=== PATIENT | male | born 1945 | race Hispanic/Latino ===

== ENCOUNTER 2022-01-30 10:26 | Outpatient (CLI) | payer OTHER | END 2022-01-30 10:27 | disposition home or self-care (01) | LOC: BICRAD 10:26 | PROVIDERS: ATTEND Family Medicine | DX: J45.50 Severe persistent asthma, uncomplicated (principal); J18.9 Pneumonia, unspecified organism | CPT/HCPCS: 71046 ==

== ENCOUNTER 2022-06-08 10:30 | Inpatient (IN) | payer MEDICAID, OTHER, SELFPAY ==
[2022-06-08] MEDS ORDERED: Aspirin Chewable 81 MG TAB ONE (10:49)
[2022-06-08] MEDS ORDERED: cefTRIAXone\\ROCEPHIN 2 GM VIAL ONE (10:53)
[2022-06-08] MEDS ORDERED: Ipratropium/Albuterol 3 ML NEB ONE (10:53)
[2022-06-08] MEDS ORDERED: Albuterol 2.5 MG/0.5 ML NEB ONE (10:53)
[2022-06-08 11:08] LABS: #Basophils 0.1 thou/uL (0.0-0.2); #Lymphocytes 1.5 thou/uL (1.20-3.40); #Monocytes 0.8 thou/uL (0.11-0.59); #Neutrophils 11.4 thou/uL (1.40-6.50); %Basophils 0.5 % (0.0-1.0); %Eosinophils 0.2 % (0.0-10.0); %Monocytes 5.6 % (0.0-10.0); %Neutrophils 82.7 % (42.0-75.0); Hemoglobin 17.8 g/dL (14.0-18.0); Mean Corpuscular HGB CONC 31.3 g/dL (32.0-36.0); Mean Corpuscular Hemoglobin 32.8 pg (27.0-31.0); Mean Platelet Volume 9.3 fL (7.4-10.4); Platelet Count 166 10x3/uL (130-400); Red Blood Cell (RBC) Count 5.42 mill/uL (4.70-6.10); White Blood Cell (WBC) Count 13.8 10x3/uL (4.8-10.8)
[2022-06-08] MEDS ORDERED: Azithromycin 500 MG VIAL ONE (11:39)
[2022-06-08 12:13] LABS: ALT (SGPT) 12 U/L (8-55); AST (SGOT) 20 U/L (5-34); Albumin 3.4 g/dL (3.4-4.8); Alkaline Phosphatase 90 U/L (40-110); Anion Gap 13 mmol/L (10-20); BUN (Urea Nitrogen) 26 mg/dL (8.4-25.7); Bilirubin, Total 0.5 mg/dL (0.2-1.2); Calc. Creatinine Clearance 0 mL/min (70-130); Calcium 9.2 mg/dL (7.8-10.44); Carbon Dioxide 27 mmol/L (23-31); Chloride 84 mmol/L (98-107); Estimated GFR 63; Globulin 4.2 g/dL (2.4-3.5); Glucose 117 mg/dL (83-110); Lipase 10 U/L (8-78); Potassium 5.7 mmol/L (3.5-5.1); Protein, Total 7.6 g/dL (5.8-8.1)
[2022-06-08 12:15] LABS: INR-International Normal Ratio 1.5; PTT 39.2 sec (22.9-36.1); Prothrombin Time 18.3 sec (12.0-14.7)
[2022-06-08 12:16] LABS: Sodium 118 mmol/L (136-145)
[2022-06-08 14:11] LABS: ALT (SGPT) 11 U/L (8-55); AST (SGOT) 24 U/L (5-34); Albumin 2.9 g/dL (3.4-4.8); Alkaline Phosphatase 87 U/L (40-110); Anion Gap 16 mmol/L (10-20); BUN (Urea Nitrogen) 25 mg/dL (8.4-25.7); Bilirubin, Total 0.4 mg/dL (0.2-1.2); Calc. Creatinine Clearance 0 mL/min (70-130); Calcium 9.2 mg/dL (7.8-10.44); Carbon Dioxide 24 mmol/L (23-31); Chloride 86 mmol/L (98-107); Estimated GFR 61; Globulin 4.3 g/dL (2.4-3.5); Glucose 114 mg/dL (83-110); Potassium 5.8 mmol/L (3.5-5.1); Protein, Total 7.2 g/dL (5.8-8.1); Sodium 120 mmol/L (136-145)
[2022-06-08] MEDS ORDERED: Acetaminophen 650 MG Suppository PR PRN (16:24)
[2022-06-08] MEDS ORDERED: Ondansetron PF 4 MG/2 ML Vial IVP PRN (16:24)
[2022-06-08] MEDS ORDERED: Sodium Chloride 0.9% 1,000 ML IV SCH (16:30)
[2022-06-08] MEDS ORDERED: Hydrocortisone Sod Succ/PF 500 mg/4 ml Vial SLOW IVP SCH (16:30)
[2022-06-08] MEDS ORDERED: Hydrocortisone Sod Succ/PF 100 mg/2 ml Vial IVP SCH (17:00)
[2022-06-08 18:07] LABS: Troponin I Less than 0.010 ng/mL (< 0.028)
[2022-06-08 18:27] LABS: Bacteria/HPF None Seen HPF (None Seen); Bilirubin Negative (Negative); Blood, Urine Negative (Negative); CAUTI Indications for Culture Alt mental st,lethar; Clarity Clear (Clear); Glucose, Urine (Dipstick) Normal (Negative); Ketone, Urine Negative (Negative); Leukocyte Negative Leu/uL (Negative); Nitrite Negative (Negative); Protein, Urine (Dipstick) Negative (Neg-Trace); RBC/HPF 0-3 HPF (0-3); Squamous Epithelial 0-3 HPF (0-3); Urobilinogen Normal mg/dL (Less than 2); WBC/HPF 0-3 HPF (0-3)
[2022-06-08 18:28] LABS: Urine Culture Reflex No No
[2022-06-08] MEDS: Cefepime 1 GM in Sodium Chloride 0.9% 100 ML IVPB SCH (18:36)
[2022-06-08 18:40] LABS: Creatinine, Urine 41.03 mg/dL (63-166); Sodium, Urine Less than 20 mmol/L (Not Available)
[2022-06-08] MEDS: Ipratropium/Albuterol 3 ML NEB NEB SCH ×2 (19:09→22:10)
[2022-06-08] MEDS: Famotidine/PF 20 mg/2ml Vial SLOW IVP SCH (20:31)
[2022-06-08 21:40] LABS: Anion Gap 13 mmol/L (10-20); BUN (Urea Nitrogen) 18 mg/dL (8.4-25.7); Calc. Creatinine Clearance 56 mL/min (70-130); Calcium 8.4 mg/dL (7.8-10.44); Carbon Dioxide 25 mmol/L (23-31); Chloride 93 mmol/L (98-107); Estimated GFR 94; Glucose 93 mg/dL (83-110); Potassium 5.6 mmol/L (3.5-5.1); Sodium 125 mmol/L (136-145)
[2022-06-08] MEDS: Sodium Chloride 0.9% 1,000 ML IV SCH (23:17)
[2022-06-09] MEDS: Hydrocortisone Sod Succ/PF 100 mg/2 ml Vial IVP SCH ×4 (01:29→17:14)
[2022-06-09] MEDS: Ipratropium/Albuterol 3 ML NEB NEB SCH ×6 (01:43→21:38)
[2022-06-09] MEDS: Cefepime 1 GM in Sodium Chloride 0.9% 100 ML IVPB SCH ×2 (05:39→17:14)
[2022-06-09 07:18] LABS: Anion Gap 13 mmol/L (10-20); BUN (Urea Nitrogen) 21 mg/dL (8.4-25.7); Calc. Creatinine Clearance 58 mL/min (70-130); Calcium 8.7 mg/dL (7.8-10.44); Carbon Dioxide 25 mmol/L (23-31); Chloride 96 mmol/L (98-107); Estimated GFR 95; Glucose 115 mg/dL (83-110); Sodium 128 mmol/L (136-145)
[2022-06-09 07:22] LABS: Potassium 6.1 mmol/L (3.5-5.1)
[2022-06-09 07:36] LABS: #Lymphocytes 0.3 thou/uL (1.20-3.40); #Monocytes 0.2 thou/uL (0.11-0.59); #Neutrophils 11.2 thou/uL (1.40-6.50); %Basophils 0.1 % (0.0-1.0); %Eosinophils 0.1 % (0.0-10.0); %Lymphocytes 2.2 % (21.0-51.0); %Monocytes 1.8 % (0.0-10.0); %Neutrophils 95.8 % (42.0-75.0); Hemoglobin 16.5 g/dL (14.0-18.0); Hypochromia SLIGHT = 6-15 cells (100X) (0-5/hpf); Large Platelets SLIGHT; MDiff Complete? YES; Macrocytosis MODERATE=16-30 cells (100X) (0-5/hpf); Mean Corpuscular HGB CONC 30.9 g/dL (32.0-36.0); Mean Corpuscular Hemoglobin 33.8 pg (27.0-31.0); Mean Platelet Volume 10.2 fL (7.4-10.4); Platelet Count 94 10x3/uL (130-400); Platelet Morphology Comment Appears Decreased; Polychromasia SLIGHT = 2-3 cells (100X) (0-2/hpf); RBC Distribution Width 14.7 % (11.5-14.5); Target Cells SLIGHT = 2-5 cells (100X) (0-1/hpf); White Blood Cell (WBC) Count 11.6 10x3/uL (4.8-10.8)
[2022-06-09] MEDS ORDERED: Furosemide 20 MG/2 ML VIAL SLOW IVP SCH (09:15)
[2022-06-09] MEDS ORDERED: Sodium Chloride 0.9% 1,000 ML IV SCH (10:00)
[2022-06-09] MEDS: LOKELMA 5 GM PACKET PO SCH ×2 (11:06→13:13)
[2022-06-09] MEDS: Sodium Chloride 0.9% 1,000 ML IV SCH (17:19)
[2022-06-09 18:19] LABS: Anion Gap 12 mmol/L (10-20); BUN (Urea Nitrogen) 25 mg/dL (8.4-25.7); Calc. Creatinine Clearance 45 mL/min (70-130); Calcium 8.5 mg/dL (7.8-10.44); Carbon Dioxide 26 mmol/L (23-31); Chloride 98 mmol/L (98-107); Estimated GFR 87; Glucose 152 mg/dL (83-110); Potassium 5.9 mmol/L (3.5-5.1); Sodium 130 mmol/L (136-145)
[2022-06-09] MEDS ORDERED: Scopolamine 1.5 mg/72 hour Patch TD SCH (20:15)
[2022-06-09] MEDS: Famotidine/PF 20 mg/2ml Vial SLOW IVP SCH (21:00)
[2022-06-10] MEDS: Hydrocortisone Sod Succ/PF 100 mg/2 ml Vial IVP SCH ×2 (00:56→04:44)
[2022-06-10] MEDS: Ipratropium/Albuterol 3 ML NEB NEB SCH ×6 (01:51→22:22)
[2022-06-10 04:14] LABS: Hemoglobin 15.5 g/dL (14.0-18.0); Mean Corpuscular HGB CONC 30.1 g/dL (32.0-36.0); Mean Corpuscular Hemoglobin 33.4 pg (27.0-31.0); Mean Platelet Volume 10.2 fL (7.4-10.4); Platelet Count 92 10x3/uL (130-400); Red Blood Cell (RBC) Count 4.65 mill/uL (4.70-6.10); White Blood Cell (WBC) Count 11.1 10x3/uL (4.8-10.8)
[2022-06-10 04:22] LABS: Anion Gap 16 mmol/L (10-20); BUN (Urea Nitrogen) 32 mg/dL (8.4-25.7); Calc. Creatinine Clearance 31 mL/min (70-130); Calcium 8.6 mg/dL (7.8-10.44); Carbon Dioxide 25 mmol/L (23-31); Chloride 100 mmol/L (98-107); Estimated GFR 56; Glucose 143 mg/dL (83-110); Sodium 134 mmol/L (136-145)
[2022-06-10 04:25] LABS: Potassium 6.5 mmol/L (3.5-5.1)
[2022-06-10] MEDS: Cefepime 1 GM in Sodium Chloride 0.9% 100 ML IVPB SCH (04:44)
[2022-06-10 04:45] LABS: Anisocytosis SLIGHT = 6-15 cells (100X) (0-5/hpf); Band 9 % (5-11); Lymphocytes 5 % (21-51); MDiff Complete? YES; Monocytes 3 % (0-10); Neutrophil 83 % (42-75); Platelet Morphology Comment Appears Decreased
[2022-06-10] MEDS ORDERED: Dextrose 50% Abboject 50 ML SYRINGE SLOW IVP SCH (04:45)
[2022-06-10] MEDS ORDERED: Calcium Gluc 4.6 MEQ/10 ML (100 MG/ML) SLOW IVP SCH (04:45)
[2022-06-10] MEDS ORDERED: Insulin Regular 300 UNITS/3 ML VIAL IVP SCH (04:45)
[2022-06-10 07:31] LABS: Anion Gap 13 mmol/L (10-20); BUN (Urea Nitrogen) 33 mg/dL (8.4-25.7); Calc. Creatinine Clearance 28 mL/min (70-130); Calcium 8.9 mg/dL (7.8-10.44); Carbon Dioxide 27 mmol/L (23-31); Chloride 101 mmol/L (98-107); Estimated GFR 50; Glucose 195 mg/dL (83-110); Potassium 5.7 mmol/L (3.5-5.1); Sodium 135 mmol/L (136-145)
[2022-06-10] MEDS: Sodium Chloride 0.9% 1,000 ML IV SCH (14:29)
[2022-06-10] MEDS: Famotidine/PF 20 mg/2ml Vial SLOW IVP SCH (20:40)
[2022-06-11] MEDS ORDERED: Midodrine HCl 5 MG TAB PO SCH (02:00)
[2022-06-11] MEDS ORDERED: Albumin 25% 25 GM/100 ML BOT IVPB SCH (02:00)
[2022-06-11 02:22] LABS: Actual Bicarbonate (HCO3a) 27.4 mEq/L (22-28); Calcium, Ionized (arterial) 1.17 mmol/L (1.12-1.30); Carboxyhemoglobin (COHb) 1.3 gm% (0.0-3.0); Hemoglobin (Hb) 14.8 g/dL (14.0-18.0); O2 Tension (PaO2), arterial 97.4 mmHg (> 70.0)
[2022-06-11 02:25] LABS: CO2 Tension 91.7 mmHg (35.0-45.0); pH, Arterial 7.09 (7.35-7.45)
[2022-06-11 02:26] LABS: Puncture Site RRA
[2022-06-11 02:27] LABS: ALV-art Gradient 73.175 mmHg (0-20)
[2022-06-11 02:52] LABS: Hemoglobin 14.5 g/dL (14.0-18.0); Mean Corpuscular HGB CONC 30.7 g/dL (32.0-36.0); Mean Platelet Volume 10.7 fL (7.4-10.4); Platelet Count 65 10x3/uL (130-400); RBC Distribution Width 15.3 % (11.5-14.5); Red Blood Cell (RBC) Count 4.26 mill/uL (4.70-6.10); White Blood Cell (WBC) Count 10.9 10x3/uL (4.8-10.8)
[2022-06-11] MEDS: NOREPINEPHRINE 8 MG/250 ML-D5W 250 ML IVPB SCH ×2 (02:58→14:42)
[2022-06-11] MEDS: Ipratropium/Albuterol 3 ML NEB NEB SCH ×6 (02:58→21:55)
[2022-06-11] MEDS ORDERED: DISCONTINUE PREVIOUS NARCOTIC PAIN MEDICATIONS AND BENZODIAZEPINES FS SCH (03:00)
[2022-06-11] MEDS ORDERED: Fentanyl BOLUS 250 ML IVPB PRN (03:00)
[2022-06-11] MEDS ORDERED: Morphine 2 MG/ML VIAL SLOW IVP PRN (03:00)
[2022-06-11] MEDS ORDERED: Ventilator Sedation Protocol 1 EACH FS SCH (03:00)
[2022-06-11] MEDS ORDERED: Propofol BOLUS 1,000 MG/100 ML VIAL IV PRN (03:00)
[2022-06-11] MEDS ORDERED: Propofol 1,000 MG/100 ML VIAL IV PRN (03:00)
[2022-06-11 03:09] LABS: Anisocytosis SLIGHT = 6-15 cells (100X) (0-5/hpf); Band 9 % (5-11); Hypochromia SLIGHT = 6-15 cells (100X) (0-5/hpf); Lymphocytes 5 % (21-51); MDiff Complete? YES; Macrocytosis SLIGHT = 6-15 cells (100X) (0-5/hpf); Monocytes 7 % (0-10); Neutrophil 79 % (42-75); Platelet Morphology Comment Appears Decreased; Polychromasia SLIGHT = 2-3 cells (100X) (0-2/hpf); Vacuoles SLIGHT
[2022-06-11] MEDS ORDERED: Rocuronium Bromide 10 MG/ML (10ML VIAL) IVPB SCH (03:30)
[2022-06-11] MEDS: Fentanyl CADD 100 ML IV SCH (03:41)
[2022-06-11 04:33] LABS: Albumin 2.7 g/dL (3.4-4.8)
[2022-06-11 04:35] LABS: Calcium 8.3 mg/dL (7.8-10.44); Chloride 102 mmol/L (98-107); Sodium 136 mmol/L (136-145)
[2022-06-11 04:36] LABS: Globulin 3.4 g/dL (2.4-3.5); Glucose 147 mg/dL (83-110); Protein, Total 6.1 g/dL (5.8-8.1)
[2022-06-11 04:37] LABS: Carbon Dioxide 24 mmol/L (23-31)
[2022-06-11 04:38] LABS: Anion Gap 16 mmol/L (10-20); Bilirubin, Total 0.5 mg/dL (0.2-1.2)
[2022-06-11 04:39] LABS: Alkaline Phosphatase 70 U/L (40-110)
[2022-06-11 04:40] LABS: BUN (Urea Nitrogen) 45 mg/dL (8.4-25.7)
[2022-06-11 04:41] LABS: AST (SGOT) 23 U/L (5-34)
[2022-06-11 04:42] LABS: ALT (SGPT) 10 U/L (8-55)
[2022-06-11 04:54] LABS: Calc. Creatinine Clearance 15 mL/min (70-130); Estimated GFR 24; Potassium 6.2 mmol/L (3.5-5.1)
[2022-06-11] MEDS: Cefepime 1 GM in Sodium Chloride 0.9% 100 ML IVPB SCH (04:59)
[2022-06-11] MEDS ORDERED: Calcium Gluc 4.6 MEQ/10 ML (100 MG/ML) SLOW IVP SCH (05:15)
[2022-06-11] MEDS ORDERED: Insulin Regular 300 UNITS/3 ML VIAL IVP SCH (05:15)
[2022-06-11] MEDS ORDERED: Dextrose 50% Abboject 50 ML SYRINGE SLOW IVP SCH (05:15)
[2022-06-11] MEDS: Sodium Chloride 0.9% 1,000 ML IV SCH ×2 (05:26→14:35)
[2022-06-11 08:15] LABS: Actual Bicarbonate (HCO3a) 25.7 mEq/L (22-28); Base Excess (BEa) 1.3 mEq/L (-2.0 to +3.0); Calcium, Ionized (arterial) 1.18 mmol/L (1.12-1.30); Carboxyhemoglobin (COHb) 0.7 gm% (0.0-3.0); O2 Tension (PaO2), arterial 146.8 mmHg (> 70.0); Potassium - ABG Lab 3.72 mmol/L (3.70-5.30); Puncture Site RRA; pH, Arterial 7.43 (7.35-7.45)
[2022-06-11] MEDS ORDERED: Diltiazem 125 MG in Sodium Chloride 0.9% 100 ML IVPB SCH (08:15)
[2022-06-11] MEDS ORDERED: Heparin 25,000 units/D5W 500 ML IVPB SCH ×2 (08:30→17:30)
[2022-06-11] MEDS ORDERED: Aspirin Chewable 81 MG TAB PO SCH (08:30)
[2022-06-11 08:45] LABS: Hemoglobin 13.1 g/dL (14.0-18.0); Platelet Count 65 10x3/uL (130-400)
[2022-06-11 08:49] LABS: Troponin I 0.031 ng/mL (< 0.028)
[2022-06-11] MEDS: Heparin 10,000 UNITS/ 10 ML VIAL SLOW IVP SCH ×2 (08:57→16:30)
[2022-06-11 09:16] LABS: Anion Gap 13 mmol/L (10-20); BUN (Urea Nitrogen) 46 mg/dL (8.4-25.7); Calc. Creatinine Clearance 18 mL/min (70-130); Calcium 8.4 mg/dL (7.8-10.44); Carbon Dioxide 24 mmol/L (23-31); Chloride 102 mmol/L (98-107); Estimated GFR 29; Glucose 210 mg/dL (83-110); Potassium 3.8 mmol/L (3.5-5.1); Sodium 135 mmol/L (136-145)
[2022-06-11] MEDS: Lorazepam 2 MG/ML VIAL SLOW IVP PRN (09:48)
[2022-06-11] MEDS ORDERED: Vancomycin 1 GM in Premix Bag 1 BAG IVPB SCH (14:00)
[2022-06-11] MEDS ORDERED: Heparin 10,000 UNITS/ 10 ML VIAL SLOW IVP SCH (17:30)
[2022-06-11 18:15] LABS: CKMB 3.2 ng/mL (0-6.6)
[2022-06-11] MEDS ORDERED: Heparin 5,000 UNITS/ML VIAL SC SCH (21:00)
[2022-06-11] MEDS: Famotidine/PF 20 mg/2ml Vial SLOW IVP SCH (21:22)
[2022-06-12] MEDS: Fentanyl CADD 100 ML IV SCH (00:33)
[2022-06-12] MEDS: Fentanyl CADD 100 ML ONE ×2 (00:34→00:38)
[2022-06-12] MEDS: Ipratropium/Albuterol 3 ML NEB NEB SCH ×6 (02:19→22:01)
[2022-06-12 04:41] LABS: Hemoglobin 13.9 g/dL (14.0-18.0); Mean Corpuscular Hemoglobin 34.1 pg (27.0-31.0); Mean Platelet Volume 6.8 fL (7.4-10.4); Platelet Count 64 10x3/uL (130-400); RBC Distribution Width 15.1 % (11.5-14.5); Red Blood Cell (RBC) Count 4.07 mill/uL (4.70-6.10); White Blood Cell (WBC) Count 7.3 10x3/uL (4.8-10.8)
[2022-06-12] MEDS: Cefepime 1 GM in Sodium Chloride 0.9% 100 ML IVPB SCH ×2 (04:46→17:48)
[2022-06-12] MEDS: Sodium Chloride 0.9% 1,000 ML IV SCH ×3 (04:54→17:48)
[2022-06-12 05:19] LABS: Anisocytosis SLIGHT = 6-15 cells (100X) (0-5/hpf); Band 16 % (5-11); Lymphocytes 11 % (21-51); MDiff Complete? YES; Macrocytosis SLIGHT = 6-15 cells (100X) (0-5/hpf); Monocytes 1 % (0-10); Neutrophil 72 % (42-75); Platelet Morphology Comment Appears Decreased
[2022-06-12 05:48] LABS: Anion Gap 14 mmol/L (10-20); BUN (Urea Nitrogen) 28 mg/dL (8.4-25.7); Calc. Creatinine Clearance 43 mL/min (70-130); Calcium 8.8 mg/dL (7.8-10.44); Carbon Dioxide 29 mmol/L (23-31); Chloride 103 mmol/L (98-107); Estimated GFR 84; Glucose 105 mg/dL (83-110); Potassium 3.8 mmol/L (3.5-5.1); Sodium 142 mmol/L (136-145)
[2022-06-12 10:24] LABS: Platelet Count 48 10x3/uL (130-400)
[2022-06-12] MEDS ORDERED: Fludrocortisone Acetate 0.1 MG TAB PO SCH (10:30)
[2022-06-12 10:35] LABS: Fibrinogen 431 mg/dL (253-463)
[2022-06-12 10:36] LABS: INR-International Normal Ratio 1.6; PTT 32.9 sec (22.9-36.1); Prothrombin Time 19.4 sec (12.0-14.7)
[2022-06-12 10:37] LABS: D-Dimer Test 2.67 *mcg/mL (0.27-0.43)
[2022-06-12] MEDS: Lorazepam 2 MG/ML VIAL SLOW IVP PRN (10:48)
[2022-06-12] MEDS: Hydrocortisone Sod Succ/PF 100 mg/2 ml Vial IVP SCH ×2 (10:49→17:48)
[2022-06-12] MEDS ORDERED: Vancomycin 1 GM in Premix Bag 1 BAG IVPB SCH (14:00)
[2022-06-12] MEDS: Azithromycin 500 MG in Sodium Chloride 0.9% 250 ML 250 ML IVPB SCH (15:03)
[2022-06-12] MEDS: Pantoprazole 40 MG VIAL IVP SCH (21:08)
[2022-06-13] MEDS: Hydrocortisone Sod Succ/PF 100 mg/2 ml Vial IVP SCH ×2 (00:35→05:21)
[2022-06-13] MEDS ORDERED: Sodium Chloride 0.9% 500 ML IV SCH (01:15)
[2022-06-13] MEDS: Amiodarone 450 MG in Dextrose 5% in Water 250 ML IVPB SCH ×2 (01:29→09:38)
[2022-06-13] MEDS ORDERED: Promethazine HCl 12.5 MG in Sodium Chloride 0.9% 50 ML IVPB SCH (01:30)
[2022-06-13] MEDS: Ipratropium/Albuterol 3 ML NEB NEB SCH ×6 (02:21→22:17)
[2022-06-13 04:37] LABS: #Lymphocytes 0.7 thou/uL (1.20-3.40); #Monocytes 0.3 thou/uL (0.11-0.59); #Neutrophils 7.5 thou/uL (1.40-6.50); %Eosinophils 0.2 % (0.0-10.0); %Lymphocytes 7.8 % (21.0-51.0); %Monocytes 3.4 % (0.0-10.0); %Neutrophils 88.6 % (42.0-75.0); Hemoglobin 13.7 g/dL (14.0-18.0); Mean Corpuscular HGB CONC 31.7 g/dL (32.0-36.0); Mean Corpuscular Hemoglobin 33.8 pg (27.0-31.0); Mean Platelet Volume 12.2 fL (7.4-10.4); Platelet Count 45 10x3/uL (130-400); RBC Distribution Width 15.1 % (11.5-14.5); Red Blood Cell (RBC) Count 4.06 mill/uL (4.70-6.10); White Blood Cell (WBC) Count 8.5 10x3/uL (4.8-10.8)
[2022-06-13] MEDS: Sodium Chloride 0.9% 1,000 ML IV SCH ×3 (04:37→21:43)
[2022-06-13 04:43] LABS: Anion Gap 14 mmol/L (10-20); BUN (Urea Nitrogen) 18 mg/dL (8.4-25.7); Calc. Creatinine Clearance 58 mL/min (70-130); Carbon Dioxide 32 mmol/L (23-31); Chloride 104 mmol/L (98-107); Estimated GFR 95; Glucose 200 mg/dL (83-110); Sodium 147 mmol/L (136-145)
[2022-06-13 04:58] LABS: Potassium 2.5 mmol/L (3.5-5.1)
[2022-06-13] MEDS: Potassium Chloride 20 MEQ in Premix Bag 1 BAG IVPB SCH ×4 (05:19→12:39)
[2022-06-13] MEDS: Cefepime 1 GM in Sodium Chloride 0.9% 100 ML IVPB SCH ×2 (05:21→16:14)
[2022-06-13 05:37] LABS: Magnesium 1.5 mg/dL (1.6-2.6)
[2022-06-13] MEDS ORDERED: Magnesium 2 GM/50 ML(in water) 2 GM in Premix Bag 1 BAG IVPB SCH (06:15)
[2022-06-13 08:13] LABS: Actual Bicarbonate (HCO3a) 35.4 mEq/L (22-28); Base Excess (BEa) 10.2 mEq/L (-2.0 to +3.0); pH, Arterial 7.48 (7.35-7.45)
[2022-06-13 08:14] LABS: Potassium - ABG Lab 2.58 mmol/L (3.70-5.30); Puncture Site LRA
[2022-06-13] MEDS: Lorazepam 2 MG/ML VIAL SLOW IVP PRN (09:05)
[2022-06-13] MEDS ORDERED: Electrolyte Replacement Protocol 1 EACH FS ONE (09:07)
[2022-06-13 09:15] LABS: Hemoglobin 13.5 g/dL (14.0-18.0); Platelet Count 48 10x3/uL (130-400)
[2022-06-13] MEDS ORDERED: Electrolyte Replacement Protocol FS PRN (09:45)
[2022-06-13] MEDS ORDERED: Potassium Bicarbonate/Cit Ac 20 MEQ TAB PER TUBE SCH (10:30)
[2022-06-13] MEDS: Azithromycin 500 MG in Sodium Chloride 0.9% 250 ML 250 ML IVPB SCH (10:54)
[2022-06-13] MEDS ORDERED: Hydrocortisone 10 mg Tablet PO SCH (11:00)
[2022-06-13] MEDS: Fludrocortisone Acetate 0.1 MG TAB PO SCH (11:17)
[2022-06-13 11:49] LABS: Anion Gap 10 mmol/L (10-20); BUN (Urea Nitrogen) 17 mg/dL (8.4-25.7); Calc. Creatinine Clearance 64 mL/min (70-130); Calcium 7.8 mg/dL (7.8-10.44); Carbon Dioxide 31 mmol/L (23-31); Chloride 108 mmol/L (98-107); Estimated GFR 99; Glucose 156 mg/dL (83-110); Potassium 2.8 mmol/L (3.5-5.1); Sodium 146 mmol/L (136-145)
[2022-06-13] MEDS: Fentanyl CADD 100 ML IV SCH (13:26)
[2022-06-13 14:53] LABS: Potassium 3.9 mmol/L (3.5-5.1)
[2022-06-13 17:36] LABS: SARS-CoV-2 NAA Rapid Test Not Detected (NotDetected)
[2022-06-13] MEDS ORDERED: Senokot 8.6 MG TAB PO SCH (21:00)
[2022-06-13] MEDS: Pantoprazole 40 MG VIAL IVP SCH (21:46)
[2022-06-14] MEDS: Ipratropium/Albuterol 3 ML NEB NEB SCH ×6 (02:20→22:11)
[2022-06-14 04:43] LABS: Hemoglobin 12.8 g/dL (14.0-18.0); Mean Corpuscular HGB CONC 32.4 g/dL (32.0-36.0); Mean Corpuscular Hemoglobin 34.4 pg (27.0-31.0); Red Blood Cell (RBC) Count 3.72 mill/uL (4.70-6.10); White Blood Cell (WBC) Count 9.6 10x3/uL (4.8-10.8)
[2022-06-14] MEDS: Cefepime 1 GM in Sodium Chloride 0.9% 100 ML IVPB SCH ×2 (04:55→17:33)
[2022-06-14] MEDS: Sodium Chloride 0.9% 1,000 ML IV SCH ×2 (04:56→08:00)
[2022-06-14 05:04] LABS: Anion Gap 9 mmol/L (10-20); BUN (Urea Nitrogen) 19 mg/dL (8.4-25.7); Calc. Creatinine Clearance 70 mL/min (70-130); Calcium 7.9 mg/dL (7.8-10.44); Carbon Dioxide 31 mmol/L (23-31); Chloride 111 mmol/L (98-107); Estimated GFR 100; Glucose 136 mg/dL (83-110); Magnesium 1.9 mg/dL (1.6-2.6); Potassium 3.4 mmol/L (3.5-5.1); Sodium 148 mmol/L (136-145)
[2022-06-14 05:15] LABS: #Eosinphils 0.1 thou/uL (0.0-0.7); #Lymphocytes 1.2 thou/uL (1.20-3.40); #Monocytes 0.7 thou/uL (0.11-0.59); #Neutrophils 7.6 thou/uL (1.40-6.50); %Basophils 0.1 % (0.0-1.0); %Eosinophils 0.7 % (0.0-10.0); %Lymphocytes 12.9 % (21.0-51.0); %Monocytes 6.9 % (0.0-10.0); %Neutrophils 79.4 % (42.0-75.0); Anisocytosis SLIGHT = 6-15 cells (100X) (0-5/hpf); Large Platelets SLIGHT; MDiff Complete? YES; Macrocytosis SLIGHT = 6-15 cells (100X) (0-5/hpf); Mean Platelet Volume 11.5 fL (7.4-10.4); Platelet Count 38 10x3/uL (130-400); Platelet Morphology Comment Appears Decreased
[2022-06-14] MEDS ORDERED: Potassium Phosphate 22 MMOL in Sodium Chloride 0.9% 250 ML 250 ML IVPB SCH (06:15)
[2022-06-14] MEDS ORDERED: Magnesium 2 GM/50 ML(in water) 2 GM in Premix Bag 1 BAG IVPB SCH (08:00)
[2022-06-14] MEDS: Hydrocortisone 10 mg Tablet PO SCH ×2 (09:40→16:00)
[2022-06-14] MEDS: Fludrocortisone Acetate 0.1 MG TAB PO SCH (09:40)
[2022-06-14 09:56] LABS: Platelet Count 45 10x3/uL (130-400)
[2022-06-14 10:13] LABS: Fibrinogen 390 mg/dL (253-463)
[2022-06-14 10:14] LABS: D-Dimer Test 3.73 *mcg/mL (0.27-0.43); INR-International Normal Ratio 1.4; PTT 29.9 sec (22.9-36.1)
[2022-06-14 10:20] LABS: Actual Bicarbonate (HCO3a) 36.6 mEq/L (22-28); Base Excess (BEa) 9.1 mEq/L (-2.0 to +3.0); Calcium, Ionized (arterial) 1.13 mmol/L (1.12-1.30); O2 Tension (PaO2), arterial 116.9 mmHg (> 70.0); Potassium - ABG Lab 3.73 mmol/L (3.70-5.30); pH, Arterial 7.39 (7.35-7.45)
[2022-06-14 10:22] LABS: ALV-art Gradient 55.775 mmHg (0-20); CO2 Tension 61.5 mmHg (35.0-45.0); Puncture Site RRA
[2022-06-14] MEDS ORDERED: Azithromycin 250 MG TAB PO SCH (12:00)
[2022-06-14] MEDS ORDERED: Sodium Chloride 0.9% 100 ML IVPB SCH (13:00)
[2022-06-14] MEDS ORDERED: Polyethylene Glycol 3350 17 GM Packet PO SCH (14:00)
[2022-06-14 15:28] VITALS: BMI 19.1
[2022-06-14] MEDS ORDERED: Bisacodyl 10 MG SUPP PR PRN (17:13)
[2022-06-14 20:52] LABS: ALT (SGPT) 20 U/L (8-55); AST (SGOT) 21 U/L (5-34); Albumin 2.7 g/dL (3.4-4.8); Alkaline Phosphatase 64 U/L (40-110); Anion Gap 10 mmol/L (10-20); BUN (Urea Nitrogen) 17 mg/dL (8.4-25.7); Bilirubin, Total 0.8 mg/dL (0.2-1.2); Calc. Creatinine Clearance 65 mL/min (70-130); Calcium 7.9 mg/dL (7.8-10.44); Carbon Dioxide 32 mmol/L (23-31); Chloride 110 mmol/L (98-107); Estimated GFR 98; Globulin 3.1 g/dL (2.4-3.5); Glucose 149 mg/dL (83-110); Magnesium 2.1 mg/dL (1.6-2.6); Phosphorus 2.5 mg/dL (2.3-4.7); Potassium 3.3 mmol/L (3.5-5.1); Protein, Total 5.8 g/dL (5.8-8.1); Sodium 149 mmol/L (136-145)
[2022-06-14] MEDS ORDERED: Senokot S 8.6-50 MG TAB PO SCH (21:00)
[2022-06-14] MEDS: Pantoprazole 40 MG VIAL IVP SCH (21:27)
[2022-06-14] MEDS: Senokot 8.6 MG TAB PO SCH (21:27)
[2022-06-14] MEDS: Fentanyl CADD 100 ML IV SCH (22:13)
[2022-06-15] MEDS: Lorazepam 2 MG/ML VIAL SLOW IVP PRN ×3 (02:40→20:06)
[2022-06-15] MEDS: Ipratropium/Albuterol 3 ML NEB NEB SCH ×6 (03:29→23:55)
[2022-06-15 04:31] LABS: Phosphorus 2.3 mg/dL (2.3-4.7)
[2022-06-15] MEDS ORDERED: Potassium Chloride 20 MEQ TAB PO SCH (08:00)
[2022-06-15] MEDS: Cefepime 1 GM in Sodium Chloride 0.9% 100 ML IVPB SCH ×3 (08:31→22:13)
[2022-06-15] MEDS: Potassium Bicarbonate/Cit Ac 20 MEQ TAB PER TUBE SCH (08:39)
[2022-06-15] MEDS: Fludrocortisone Acetate 0.1 MG TAB PO SCH (08:43)
[2022-06-15] MEDS: Senokot 8.6 MG TAB PO SCH ×2 (08:43→19:16)
[2022-06-15] MEDS: Polyethylene Glycol 3350 17 GM Packet PO SCH (08:43)
[2022-06-15] MEDS: Hydrocortisone 10 mg Tablet PO SCH ×2 (08:43→16:00)
[2022-06-15 08:49] LABS: Hemoglobin 13.3 g/dL (14.0-18.0); Platelet Count 51 10x3/uL (130-400)
[2022-06-15] MEDS ORDERED: Digoxin 0.125 MG TAB PO SCH (09:00)
[2022-06-15] MEDS: Dextrose 5% in Water 1,000 ML IV SCH ×2 (12:00→22:13)
[2022-06-15] MEDS: Morphine 4 MG/ML VIAL SLOW IVP PRN (16:00)
[2022-06-15] MEDS ORDERED: Scopolamine 1.5 mg/72 hour Patch TOP SCH (18:30)
[2022-06-15] MEDS: Pantoprazole 40 MG VIAL IVP SCH (19:17)
[2022-06-16] MEDS: Ipratropium/Albuterol 3 ML NEB NEB SCH ×5 (03:07→19:18)
[2022-06-16] MEDS: Morphine 4 MG/ML VIAL SLOW IVP PRN (06:02)
[2022-06-16] MEDS: Lorazepam 2 MG/ML VIAL SLOW IVP PRN (06:03)
[2022-06-16 07:41] LABS: Hemoglobin 13.1 g/dL (14.0-18.0); Mean Corpuscular Hemoglobin 33.2 pg (27.0-31.0); Red Blood Cell (RBC) Count 3.95 mill/uL (4.70-6.10)
[2022-06-16 07:52] LABS: Anion Gap 12 mmol/L (10-20); BUN (Urea Nitrogen) 22 mg/dL (8.4-25.7); Calc. Creatinine Clearance 50 mL/min (70-130); Calcium 8.5 mg/dL (7.8-10.44); Carbon Dioxide 33 mmol/L (23-31); Chloride 107 mmol/L (98-107); Estimated GFR 91; Glucose 61 mg/dL (83-110); Phosphorus 4.4 mg/dL (2.3-4.7); Potassium 4.4 mmol/L (3.5-5.1); Sodium 148 mmol/L (136-145)
[2022-06-16 08:00] VITALS: BP 91/42; TEMP 97.8
[2022-06-16] MEDS: Senokot 8.6 MG TAB PO SCH (08:26)
[2022-06-16] MEDS: Polyethylene Glycol 3350 17 GM Packet PO SCH (08:26)
[2022-06-16] MEDS: Potassium Bicarbonate/Cit Ac 20 MEQ TAB PER TUBE SCH (08:26)
[2022-06-16] MEDS: Fludrocortisone Acetate 0.1 MG TAB PO SCH (08:26)
[2022-06-16] MEDS: Hydrocortisone 10 mg Tablet PO SCH (08:26)
[2022-06-16 11:00] LABS: Anisocytosis MODERATE=16-30 cells (100X) (0-5/hpf); Band 9 % (5-11); Eosinophils 1 % (0-10); Hypochromia SLIGHT = 6-15 cells (100X) (0-5/hpf); Lymphocytes 13 % (21-51); MDiff Complete? YES; Mean Corpuscular HGB CONC 29.5 g/dL (32.0-36.0); Monocytes 5 % (0-10); Neutrophil 70 % (42-75); Ovalocytes SLIGHT = 2-5 cells (100X) (0-1/hpf); Platelet Count 51 10x3/uL (130-400); Platelet Morphology Comment Appears Decreased; RBC Distribution Width 15.5 % (11.5-14.5); Reactive Lymphocytes 2 % (0-10); Target Cells SLIGHT = 2-5 cells (100X) (0-1/hpf); White Blood Cell (WBC) Count 11.7 10x3/uL (4.8-10.8)
[2022-06-16] MEDS: Dextrose 5% in Water 1,000 ML IV SCH (14:43)
== END 2022-06-16 15:05 | disposition expired | DRG 870 ==
LOC: ERS 10:30 → IMCU/EMU 14:10 → CCU 06-11 02:33 → T4-B 06-15 17:35
PROVIDERS: ADMIT Family Medicine; ATTEND Family Medicine
PROC: 3E03329 Introduction of Other Anti-infective into Peripheral Vein, Percutaneous Approach (ICD-10-PCS; 2022-06-08)
PROC: 0DH67UZ Insertion of Feeding Device into Stomach, Via Natural or Artificial Opening (ICD-10-PCS; principal; 2022-06-11)
PROC: 3E0G76Z Introduction of Nutritional Substance into Upper GI, Via Natural or Artificial Opening (ICD-10-PCS; 2022-06-11)
PROC: 5A1955Z Respiratory Ventilation, Greater than 96 Consecutive Hours (ICD-10-PCS; 2022-06-11)
PROC: 3E033XZ Introduction of Vasopressor into Peripheral Vein, Percutaneous Approach (ICD-10-PCS; 2022-06-11)
PROC: 0BH17EZ Insertion of Endotracheal Airway into Trachea, Via Natural or Artificial Opening (ICD-10-PCS; 2022-06-11)
DX: A41.9 Sepsis, unspecified organism (principal); J96.21 Acute and chronic respiratory failure with hypoxia; E43 Unspecified severe protein-calorie malnutrition; J18.9 Pneumonia, unspecified organism; G93.41 Metabolic encephalopathy; J69.0 Pneumonitis due to inhalation of food and vomit; R65.21 Severe sepsis with septic shock; J96.22 Acute and chronic respiratory failure with hypercapnia; E87.1 Hypo-osmolality and hyponatremia; E27.40 Unspecified adrenocortical insufficiency; Z68.1 Body mass index [BMI] 19.9 or less, adult; R64 Cachexia; N17.9 Acute kidney failure, unspecified; J90 Pleural effusion, not elsewhere classified; I48.92 Unspecified atrial flutter; J44.0 Chronic obstructive pulmonary disease with (acute) lower respiratory infection; Z66 Do not resuscitate; Z51.5 Encounter for palliative care; E87.5 Hyperkalemia; J84.112 Idiopathic pulmonary fibrosis; E86.0 Dehydration; E86.1 Hypovolemia; R53.81 Other malaise; M45.9 Ankylosing spondylitis of unspecified sites in spine; I95.9 Hypotension, unspecified; R63.0 Anorexia; R62.7 Adult failure to thrive; D69.6 Thrombocytopenia, unspecified; I48.91 Unspecified atrial fibrillation; E83.39 Other disorders of phosphorus metabolism; N18.9 Chronic kidney disease, unspecified; I27.20 Pulmonary hypertension, unspecified; D63.1 Anemia in chronic kidney disease; Z20.822 Contact with and (suspected) exposure to COVID-19; I08.1 Rheumatic disorders of both mitral and tricuspid valves; K59.00 Constipation, unspecified; Z79.899 Other long term (current) drug therapy; Z99.81 Dependence on supplemental oxygen; Z87.891 Personal history of nicotine dependence; Z86.16 Personal history of COVID-19; Z78.1 Physical restraint status
CPT/HCPCS: 36415; 36416; 36600; 70450; 71045; 74018; 80048; 80053; 81001; 81002; 81374; 82533; 82553; 82570; 82805; 83605; 83690; 83735; 83880; 83930; 83935; 84100; 84300; 84443; 84484; 85014; 85018; 85025; 85049; 85300; 85362; 85379; 85384; 85610; 85652; 85730; 86480; 86606; 86612; 87040; 87116; 87206; 93005; 93010; 93306; 93970; 94002; 94003; 94640; 94760; 96361; 96365; 96366; 96367; C9113; J0282; J0456; J0610; J0692; J0696; J1644; J1720; J1815; J1940; J2060; J2270; J2272; J2405; J3010; J3372; J3475; J3480; J3490; J7030; J7050; J7070; J7611; J7620; J7999; P9047; S0028; U0003; U0005